=== PATIENT | male | born 1970 | race Caucasian/White ===

== ENCOUNTER 2017-02-16 19:28 | Inpatient (IN) | payer OTHER ==
[~2017-02-16] VITALS: Ht 185.4 cm; Wt 87.7 kg
--- NOTE | ~2017-02-16 | HP ---
ADMIT: 02/16/2017 RM/LOC: [address] [facility] [facility] MR#: [id number] [facility]#: [id number] [address] [facility] [address] [place], [place] [address] VALERIA IBRAHIM [address] [place] [address] History and Physical SEX: M AGE: 46 : 1970 DATE OF SERVICE: CHIEF COMPLAINT: Abdominal pain, nausea, and vomiting. HISTORY OF PRESENT ILLNESS: Mr. Ibrahim is a very nice 46-year-old man. He has a past medical history significant for unfortunately a history of diverticulitis started May of 2016. It sounds as if he had perforation at that time, pretty severe episode and ended up with a colectomy with an ostomy in September 2016 and then had a reversal of a procedure in November 2016. He reports he has been doing well until yesterday. He got up in the morning, ate some breakfast, almost immediately felt like he had some abdominal pain. Reports that the pain continued to get worse. He was able to eat some lunch. The pain continued to get worse. He threw up like 3 or 4 times, pretty much the content of what he had eaten and then reports that he came to the ER. In the ER, they did show that he had, what appears to be an obstruction at his distal ileum where his anastomosis was. He was given pain medicine and antinausea medicine in the ER, and then reports that he felt much better. PAST MEDICAL HISTORY: Significant for: 1. History of diverticulitis. 2. History of colectomy with ostomy in September 2016 and reversal November 2016. 3. History of episodes of diverticulitis. MEDICATIONS: Probiotic. SOCIAL HISTORY: He has never smoked. He drinks occasional alcohol. He lives in [place]. FAMILY HISTORY: Positive for cancer, but no hypertension, diabetes, or heart disease. REVIEW OF SYSTEMS: Obtained, was otherwise essentially negative. PHYSICAL EXAMINATION: GENERAL: He is alert and oriented, in no apparent distress. HEENT: Pupils are equal, round, reactive. Oropharynx has dry mucous membranes. NECK: Supple. ADMIT: 02/16/2017 RM/LOC: [address] [facility] MR#: [id number] [address] [address] VALERIA IBRAHIM [address] [place] [address] History and Physical SEX: M AGE: 46 : 1970 HEART: Normal rate with a regular rhythm. LUNGS: Clear to auscultation. ABDOMEN: Slightly hyperactive bowel sounds. Soft, nontender, nondistended. EXTREMITIES: Have no evidence of edema. ASSESSMENT AND PLAN: 1. Small bowel obstruction. At this time, we will go ahead and may give him some IV fluids. Keep him n.p.o., do some IV antiemetics as well as pain medicine as needed. Plan to do a flat plate and upright in a.m. and go from there. 2. History of Clostridium difficile. We will plan to hold his probiotic while he is n.p.o. Jessica Daley MD/ julian JOB #: [id number] CC: Jessica Daley, Attending Physician Jessica Daley, Family Physician
--- NOTE | 2017-02-17 23:16 | ER ---
ADMIT: 02/16/2017 RM/LOC: [address] [facility] MR#: [id number] [address] [facility] [address] [place], [place] [address] VALERIA KHOURY [address] [place] [address] Emergency Room Report SEX: M AGE: 46 : 1970 DATE: 02/16/2017 See T-sheet for complete H and P. ADDENDUM: A 46-year-old male comes in with complaints of about 8 hours of abdominal pain. His past medical history significant for ruptured diverticulitis last fall, and he developed an abscess and had to have some drains placed. He eventually did require getting a colostomy with removal of part of his sigmoid and distal colon. That colostomy was able to be taken down in November of 2016. He states that he had been doing fine last night and early this morning, but began having some discomfort just before noon. He did try eating lunch, which he ended up vomiting shortly thereafter. He has had persistent pain since then, but no more episodes of vomiting. His physical exam shows the patient is quite uncomfortable and bowel sounds are decreased. Abdomen is soft, diffusely tender, not rigid. HOSPITAL COURSE: We did get an IV started in the patient and gave him a liter of normal saline and some morphine for pain and Zofran for nausea. He was feeling much better afterwards. I did end up getting a CT abdomen and pelvis for the patient, which does demonstrate small bowel obstruction. His CBC and CMP were unremarkable. The patient was feeling much better during this time in the Emergency Department, and I spoke to Dr. 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 The patient is admitted in improved condition with diagnoses of: 1. Small bowel obstruction. 2. Abdominal pain. Tru Luis MD/ julain JOB #: [id number] CC: Jessica Daley MD, Attending Physician Jessica Daley MD, Family Physician
[2017-02-19] MEDS ORDERED: PROBIOTIC1 EAC1 PO (07:09)
--- NOTE | 2017-02-19 08:32 | DS ---
ADMIT: 02/16/2017 RM/LOC: [address] [facility] MR#: [id number] [facility]#: [id number] [address] [address] VALERIA KHOURY [address] [place] [address] Discharge Summary SEX: M AGE: 46 : 1970 ADMISSION DATE: 02/16/2017 DISCHARGE DATE: 02/18/2017 DISCHARGE DIAGNOSES: 1. Small bowel obstruction. 2. Nausea, vomiting. 3. Dehydration. 4. History of diverticulitis. 5. History of ileostomy with takedown secondary to perforated diverticulitis. HOSPITAL COURSE: The patient was admitted. He was placed n.p.o. He did not require an NG. He initially had an improvement of his symptoms and but then did have recurrence of his pain the next morning. His x-ray showed a resolving partial small bowel obstruction. He was kept n.p.o. He was started on clears that night. The next morning his x-ray showed improvement with resolution of his partial small bowel obstruction. Therefore, the patient was placed on regular diet and was tolerating this so he was felt stable to be discharged home. DISCHARGE INSTRUCTIONS: Probiotics 1 p.o. b.i.d. as he was taking before. Followup with his PCP or surgeon p.r.n. Jessica Daley MD/ christine JOB #: [id number] CC: Jessica Daley MD, Attending Physician Jessica Daley MD, Family Physician
== END 2017-02-18 11:15 | disposition home or self-care (01) | DRG 390 ==
LOC: ER 19:28 → 6PED 21:06
PROVIDERS: ADMIT Internal Medicine
DX: K56.60 Unspecified intestinal obstruction (principal); E86.0 Dehydration; K57.90 Diverticulosis of intestine, part unspecified, without perforation or abscess without bleeding